=== PATIENT | male | born 2000 | race Caucasian/White ===

== ENCOUNTER → 2021-08-29 | Outpatient (CLI) | payer OTHER ==
[~2021-08-29] MED LIST: IBU800 MG PO; PREDNISONE; VITAMIN D
== END ==
LOC: KOH-I 14:30
DX: S82.842A Displaced bimalleolar fracture of left lower leg, initial encounter for closed fracture (principal)
CPT/HCPCS: 73700

== ENCOUNTER → 2021-08-31 | Day surgery (SDC) | payer OTHER ==
[~2021-08-31] VITALS: Ht 175.3 cm; Wt 68.0 kg
[2021-08-31 07:39] LABS: HEMOGLOBIN 14.6 gm/dl (14.0-17.5); RED BLOOD COUNT 5.05 M/UL (4.20-5.50)
[2021-08-31 08:03] LABS: BUN/CREATININE RATIO 32 (0-10)
== END | disposition home or self-care (01) ==
LOC: OR 07:06
PROVIDERS: Podiatrist Foot & Ankle Surgery
DX: S82.842A Displaced bimalleolar fracture of left lower leg, initial encounter for closed fracture (principal); S93.432A Sprain of tibiofibular ligament of left ankle, initial encounter; M13.872 Other specified arthritis, left ankle and foot; M24.072 Loose body in left ankle; W19.XXXA Unspecified fall, initial encounter; Y93.31 Activity, mountain climbing, rock climbing and wall climbing
CPT/HCPCS: 73610; 76000; 80048; 85027; C1713; C1762; J0171; J0690; J1100; J1170; J1720; J1885; J2001; J2250; J2370; J2405; J2704; J2795; J3010; J3370

== ENCOUNTER → 2021-09-05 | Outpatient (CLI) | payer OTHER | LOC: KOH-I 09:30 | DX: S82.842D Displaced bimalleolar fracture of left lower leg, subsequent encounter for closed fracture with routine healing (principal) | CPT/HCPCS: 73610 ==

== ENCOUNTER → 2021-09-20 | Outpatient (CLI) | payer OTHER | LOC: KOH-I 09:42 | DX: S82.842A Displaced bimalleolar fracture of left lower leg, initial encounter for closed fracture (principal) | CPT/HCPCS: 73610 ==